=== PATIENT | female | born 1960 | race Caucasian/White ===

== ENCOUNTER → 2023-09-22 09:14 | Outpatient (CLI) | payer BC, SELFPAY ==
--- NOTE | ~2023-09-22 | US_ITS ---
EXAMINATION: US abdomen limited DATE: 09/22/2023 09:33 INDICATION: Subcutaneous mass TECHNIQUE: Limited abdominal ultrasound is performed in the area of clinical concern. COMPARISON: None available FINDINGS: No discrete mass is identified. There are normal appearing subcutaneous tissues in the area of clinical interest. IMPRESSION: 1. No specific sonographic correlate is identified for the patient's reported subcutaneous mass. Furt her evaluation at this time should be based on clinical assessment. Continued follow-up physical exam ination is recommended. Reviewed, dictated and finalized at location L. HOLOGICAL ASSISTANT IMPRESSION: 1. No specific sonographic correlate is identified for the patient's reported s ubcutaneous mass. Further evaluation at this time should be based on clinical a ssessment. Continued follow-up physical examination is recommended.
== END ==
PROVIDERS: PCP Physician Assistant
DX: D48.5 Neoplasm of uncertain behavior of skin (principal)
CPT/HCPCS: 76705